=== PATIENT | male | born 1945 | race Native Hawaiian/Other Pacific Islander ===

== ENCOUNTER 2021-01-10 21:05 | Emergency (ER) | payer OTHER ==
[~2021-01-10] VITALS: Ht 170.2 cm; Wt 71.2 kg
[2021-01-10 21:33] LABS: PLATELET COUNT 294 K/uL (142-355)
[2021-01-10 21:41] LABS: POTASSIUM 4.5 mmol/L (3.6-5.2)
[2021-01-10 22:30] VITALS: BP 131/68; TEMP 98.7
[2021-01-10] MEDS ORDERED: DOCU SOFT100 MG PO (23:40)
[2021-01-10] MEDS ORDERED: FERROUS SULFATE PO (23:43)
[2021-01-10] MEDS ORDERED: TYLENOL325 MG PO (23:44)
[2021-01-10] MEDS ORDERED: AMLODIPINE BESYLATE PO (23:45)
[2021-01-10] MEDS ORDERED: LIDOPATCH TOP (23:46)
[2021-01-10] MEDS ORDERED: SEROQUEL25 MG PO ×2 (23:47→23:49)
[2021-01-10] MEDS ORDERED: TAMS0.4C PO (23:50)
== END 2021-01-10 22:30 | disposition home or self-care (01) ==
LOC: ED 21:05 → EDBD 21:05 → ED 22:30
PROVIDERS: Hospitalist
DX: F25.8 Other schizoaffective disorders (principal); Z11.52 Encounter for screening for COVID-19; Z04.6 Encounter for general psychiatric examination, requested by authority
CPT/HCPCS: 36415; 80053; 85027; 87635; 93005; 99283; U0003